=== PATIENT | male | born 1990 | race Caucasian/White ===

== ENCOUNTER 2017-01-23 15:11 | Emergency (ER) | payer OTHER ==
[~2017-01-23] VITALS: Ht 180.3 cm; Wt 104.3 kg
[2017-01-23 15:24] VITALS: BP 145/75
[2017-01-23] MEDS ORDERED: ONDANSETRON 4 MG ODT PO ONE (17:25)
[2017-01-23] MEDS ORDERED: PHENAZOPYRIDINE 100 MG TAB PO ONE (17:50)
[2017-01-23] MEDS ORDERED: CIPROFLOXACIN 250 MG TAB PO ONE (17:50)
[2017-01-23] MEDS ORDERED: KETOROLAC 60 MG/2 ML VIAL IM ONE (17:50)
[2017-01-23] MEDS ORDERED: DICYCLOMINE 20 MG/2 ML VIAL IM ONE (17:50)
[2017-01-23] MEDS ORDERED: ACETAMINOPHEN EXTRA STRENGTH 500 MG TAB PO ONE (17:50)
[2017-01-23 19:28] VITALS: BP 116/58
== END 2017-01-23 19:28 | disposition home or self-care (01) ==
LOC: MED 15:11
DX: T62.8X1A Toxic effect of other specified noxious substances eaten as food, accidental (unintentional), initial encounter (principal); K52.1 Toxic gastroenteritis and colitis; N39.0 Urinary tract infection, site not specified; Z86.73 Personal history of transient ischemic attack (TIA), and cerebral infarction without residual deficits; Y92.89 Other specified places as the place of occurrence of the external cause
CPT/HCPCS: 36415; 81002; 87804; 96372; 99284; J0500; J1885; S0119

== ENCOUNTER 2017-04-29 12:50 | Emergency (ER) | payer OTHER ==
[~2017-04-29] VITALS: Ht 180.3 cm; Wt 99.8 kg
[2017-04-29] MEDS: IPRATROPIUM 0.02% 0.5 MG/2.5 ML NEBU INH ONE (15:38)
[2017-04-29] MEDS: ALBUTEROL 0.083% 2.5 MG/3 ML NEBU INH ONE (15:38)
[2017-04-29] MEDS: predniSONE 20 MG TAB PO ONE (15:57)
[2017-04-29 16:35] VITALS: BP 124/78
== END 2017-04-29 16:35 | disposition home or self-care (01) ==
LOC: MED 12:50
DX: J20.9 Acute bronchitis, unspecified (principal); Z86.73 Personal history of transient ischemic attack (TIA), and cerebral infarction without residual deficits
CPT/HCPCS: 71010; 94640; 99283; J7512; J7613; J7644

== ENCOUNTER 2018-07-26 13:25 | Emergency (ER) | payer OTHER ==
[~2018-07-26] VITALS: Ht 180.3 cm; Wt 108.9 kg
[2018-07-26 13:43] VITALS: BP 101/58
--- NOTE | 2018-07-26 13:51 | NUR ---
PATIENT CAME IN ON ELECTRIC WHEELCHAIR TO BED 9
--- NOTE | 2018-07-26 13:55 | NUR ---
PT. CAME INTO THE ED DUE TO COUGH AND STUFFY NOSE X 4 DAYS. PT. STATES " I STARTED FEELING SICK ON FRIDAY WITH A SCRATCHY THROAT AND ITCHY EARS AND SINCE THEN I HAVE BEEN HAVING A BAD COUGH AND RUNNY NOSE". PT. DENIES ANY FEVER OR CHILLS. DENIES ANY SOB. 03/06 PAIN IN THROAT AND CHEST DISCOMFORT WHEN BREATHING THAT NON RADIATING. VSS. PT. HAS TRACHEOSTOMY REMOVED ON 05/2018. PT. ABLE TO SPEAK IN FULL AND COMPLETE SENTECES. WILL CONTINUE TO MONITOR.
--- NOTE | 2018-07-26 15:00 | NUR ---
PT. IN CHAIR, RR EVEN AND UNLABORED. WILL CONTINUE TO MONITOR. VSS
--- NOTE | 2018-07-26 15:05 | NUR ---
technology intern at bedside.
--- NOTE | 2018-07-26 15:15 | NUR ---
Dr. Yeager evaluating patient at bedside.
[2018-07-26] MEDS ORDERED: hydrOXYzine HCL 25 MG TAB PO ONE (15:30)
[2018-07-26] MEDS ORDERED: ALBUTEROL SULFATE/IPRATROPIU 3 ML SOL IH ONE (15:30)
[2018-07-26] MEDS ORDERED: LEVOFLOXACIN 500 MG TAB PO ONE (15:30)
--- NOTE | 2018-07-26 15:46 | NUR ---
Received report from Marcelina TREADWELL; Assumed care of patient
--- NOTE | 2018-07-26 15:50 | NUR ---
Breathing treatment administered at bedside by respiratory therapist.
[2018-07-26 17:04] VITALS: BP 101/58
--- NOTE | 2018-07-26 17:05 | NUR ---
Patient discharged with v/s stable. Written and verbal after care instructions given and explained. Patient alert, oriented and verbalized understanding of instructions. Ambulatory with steady gait. All questions addressed prior to discharge. ID band removed. Patient advised to follow up with PMD. Rx of AZITHROMYCIN, PREDNISONE, TAMIFLU, AND PREDNISONE given. Patient educated on indication of medication including possible reaction and side effects. Opportunity to ask questions provided and answered.
== END 2018-07-26 17:05 | disposition home or self-care (01) ==
LOC: MED 13:25
DX: J40 Bronchitis, not specified as acute or chronic (principal); J32.9 Chronic sinusitis, unspecified; J11.1 Influenza due to unidentified influenza virus with other respiratory manifestations; Z86.73 Personal history of transient ischemic attack (TIA), and cerebral infarction without residual deficits
CPT/HCPCS: 36415; 71045; 87804; 94640; 99284; J7620; Q0092